=== PATIENT | female | born 1985 | race Caucasian/White ===

== ENCOUNTER 2019-05-03 14:01 | Emergency (ER) | payer SELFPAY ==
[~2019-05-03] VITALS: Ht 144.8 cm; Wt 51.3 kg
[2019-05-03 14:14] VITALS: Ht 144.8 cm; Wt 51.3 kg
[2019-05-03 15:00] LABS: BASOPHIL % 1.5 % (0-2); PLATELET COUNT 382 x10^3mcL (130-400)
[2019-05-03 15:02] LABS: RED CELL DISTRIBUTION WIDTH 16.4 % (11.5-14.5)
[2019-05-03 15:11] LABS: CALCIUM 9.2 mg/dL (8.5-10.1); CARBON DIOXIDE 25.9 mmol/L (21-32); CHLORIDE SERUM 105 mmol/L (98-107); CREATININE SERUM 0.8 mg/dL (0.6-1.0); GFR1 > 60 mL/min; GLUCOSE SERUM 129 mg/dL (74-106); POTASSIUM SERUM 3.4 mmol/L (3.5-5.1); SODIUM SERUM 142 mmol/L (136-145)
[2019-05-03 15:15] LABS: ALBUMIN 3.9 g/dL (3.4-5.0); ALKALINE PHOSPHATASE 84 U/L (46-116); ALT/SGPT 15 U/L (14-59); AST/SGOT 14 U/L (15-37); BILIRUBIN TOTAL 0.5 mg/dL (0.20-1.00); TOTAL PROTEIN, SERUM 7.9 g/dL (6.4-8.2)
[2019-05-03 15:57] VITALS: BP 123/66
== END 2019-05-03 15:57 | disposition home or self-care (01) ==
LOC: ED 14:01
PROVIDERS: Emergency Medicine
DX: R00.2 Palpitations (principal); F43.20 Adjustment disorder, unspecified; Z88.6 Allergy status to analgesic agent
CPT/HCPCS: 36415